=== PATIENT | male | born 1970 | race American Indian/Alaskan Native ===

== ENCOUNTER 2017-03-04 20:58 | Emergency (ER) | payer MEDICAID, OTHER ==
[2017-03-04 20:59] VITALS: BMI 30.5
[2017-03-04 21:09] VITALS: TEMP 98.2
--- NOTE | 2017-03-04 21:15 | ED PDOC ---
Arrival/HPI <Zan Hardy - Last Filed: 03/04/17 21:37> - General Historian: Patient - History of Present Illness Time/Duration: Prior to Arrival Symptom Onset: Sudden Symptom Course: Unchanged Activities at Onset: Light Context: Standing, Street <Sera Hernandez - Last Filed: 03/04/17 23:22> - General Chief Complaint: Trauma Time Seen by Provider: 03/04/17 21:07 - History of Present Illness Narrative History of Present Illness (Text): 03/04/17 21:10 46 year old male smoker, whose past medical history includes chronic back pain, who presents to the ED brought in by EMS complaining of right ankle pain status post fall prior to arrival. Patient states he was outside leaning on the banister of the back porch of his home smoking a cigarette earlier tonight. Patient states the banister was rotted and broke away causing him to fall on to his right ankle. Patient states he landed on his right side but is only experiencing right ankle pain. Patient denies any weakness/numbness/tingling of the extremity, head injury, loss of consciousness, neck pain, headache, or dizziness. Patient states he had difficulty ambulating secondary to pain and notified EMS. Patient denies any other complaints. Patient states he regularly takes pain medication for chronic back pain. (Sera Hernandez) Past Medical History - Provider Review Nursing Documentation Reviewed: Yes - Infectious Disease Hx of Infectious Diseases: None - Tetanus Immunization Tetanus Immunization: Unknown - Past Medical History Past Medical History: No Previous - Musculoskeletal/Rheumatological Hx Fractures: Yes - Psychiatric Hx Emotional Abuse: No Hx Physical Abuse: No Hx Substance Use: No - Past Surgical History Past Surgical History: No Previous - Anesthesia Hx Anesthesia: No - Suicidal Assessment Feels Threatened In Home Enviroment: No <Sera Hernandez - Last Filed: 03/04/17 23:22> Family/Social History - Physician Review Nursing Documentation Reviewed: Yes Family/Social History: Unknown Family HX Smoking Status: Light Smoker < 10 Cigarettes Daily Hx Alcohol Use: Yes Hx Substance Use: No Substance used: PCP Hx Substance Use Treatment: No <Sera Hernandez - Last Filed: 03/04/17 23:22> Allergies/Home Meds <Zan Hardy - Last Filed: 03/04/17 21:37> <Sera Hernandez - Last Filed: 03/04/17 23:22> Allergies/Adverse Reactions: Allergies No Known Allergies Allergy (Verified 02/13/17 11:35) Review of Systems - Physician Review All systems were reviewed & negative as marked: Yes - Review of Systems Constitutional: Normal. absent: Fevers Eyes: Normal ENT: Normal Respiratory: Normal. absent: SOB, Cough Cardiovascular: Normal. absent: Chest Pain, Syncope Gastrointestinal: Normal. absent: Abdominal Pain, Nausea, Vomiting Genitourinary Male: Normal. absent: Dysuria, Frequency, Hematuria, Urinary Output Changes Musculoskeletal: Arthralgias (+right ankle pain) Skin: Normal Neurological: Normal Endocrine: Normal Hemo/Lymphatic: Normal Psychiatric: Normal <Sera Hernandez - Last Filed: 03/04/17 23:22> Physical Exam Vital Signs Reviewed: Yes Temperature: Afebrile Blood Pressure: Hypertensive Pulse: Regular Respiratory Rate: Normal Appearance: Positive for: Well-Appearing, Non-Toxic, Comfortable Pain Distress: None Mental Status: Positive for: Alert and Oriented X 3 - Systems Exam Head: Present: Atraumatic, Normocephalic Pupils: Present: PERRL Extroacular Muscles: Present: EOMI Conjunctiva: Present: Normal Mouth: Present: Moist Mucous Membranes Neck: Present: Normal Range of Motion Respiratory/Chest: Present: Clear to Auscultation, Good Air Exchange. No: Respiratory Distress, Accessory Muscle Use, Tender to Palpation Cardiovascular: Present: Regular Rate and Rhythm, Normal S1, S2. No: Murmurs Abdomen: Present: Normal Bowel Sounds. No: Tenderness, Distention, Peritoneal Signs Upper Extremity: Present: Normal Inspection. No: Cyanosis, Edema Lower Extremity: Present: NORMAL PULSES (Distal pulses intact), Tenderness ( Tenderness to right lateral malleolus, minimal right dorsal foot tenderness, no proximal right fibular tenderness, left lower extremity unremarkable), Swelling (Swelling to right lateral malleolus), Neurovascularly Intact, Capillary Refill < 2 s, Other (no achilles tendon tenderness). No: Edema, CALF TENDERNESS, Cyanosis, Normal ROM (Limited ROM of the right ankle), Erythema, Temperature Abnormalties Neurological: Present: GCS=15, Speech Normal Skin: Present: Warm, Dry, Normal Color. No: Rashes Psychiatric: Present: Alert, Oriented x 3 <Sera Hernandez - Last Filed: 03/04/17 23:22> Vital Signs Temp Pulse Resp BP Pulse Ox 03/04/17 20:59 98.2 F 95 H 16 180/79 H 95 Medical Decision Making <Zan Hardy - Last Filed: 03/04/17 21:37> <Sera Hernandez - Last Filed: 03/04/17 23:22> ED Course and Treatment: 03/04/17 21:10 Impression: 46 year old male complaining of right ankle pain s/p fall tonight. Plan: -- Toradol -- XR Right Foot - no fracture -- XR Right Ankle - no fracture -- Reassess and disposition Progress Notes: Pt given Toradol for pain management. Patient nontoxic well-appearing in no distress with stable vital signs Patient placed in short leg posterior splint. pt refused crutches for ambulation. states he has a cane. I discussed all results in depth with the patient advised to followup with the orthopedist within the next 2 days. Advised return if symptoms worsen persist or new symptoms develop i advised the patient that although the xrays show no fracture; there is still a possibility for ligamentous or tendon injury the patient must see the orthopedist for further evaluation. Patient verbalizes understanding of discharge instructions and need for immediate followup. all aspects of this case were discussed the attending of record. Patient with a history of chronic back pain complaining that he is unable to get his pain medications and he has been traveling back and forth to multiple pain management doctors without success. I've advised the patient that I'll give him a referral to Esteban Faye for further evaluation of his chronic back pain. Impression: Ankle pain Motrin every 6 hours as needed for pain Rest, ice, compression, elevation Use crutches for ambulation Followup with the orthopedist within the next 2 days Followup with primary care physician within the next 2 days Return if symptoms worsen persist or if new symptoms develop (Sera Hernandez) - RAD Interpretation Radiology Orders: 03/04/17 21:14 ANKLE RIGHT 3 VIEWS ROUTINE [RAD] Stat FOOT RIGHT 3 VIEWS ROUTINE [RAD] Stat - Medication Orders Current Medication Orders: Discontinued Medications Ketorolac Tromethamine (Toradol) 60 mg IM STAT STA Stop: 03/04/17 21:15 Last Admin: 03/04/17 21:20 Dose: 60 mg Ketorolac Tromethamine (Toradol) Confirm Administered Dose 60 mg .ROUTE .STK- MED ONE Stop: 03/04/17 21:17 Last Admin: 03/04/17 21:34 Dose: Oxycodone/Acetaminophen (Percocet 5/325 Mg Tab) 1 tab PO STAT STA Stop: 03/04/17 22:29 Procedures - Splinting Location: right ankle Hand-Made Type: fiberglass Splint: posterior short leg splint Pre-Proc Neuro Vasc Exam: normal Post-Proc Neuro Vasc Exam: normal <Sera Hernandez - Last Filed: 03/04/17 23:22> - PA / ULTRASOUND TECHNOL / Resident Statement MD/DO has reviewed & agrees with the documentation as recorded. <Zan Hardy - Last Filed: 03/04/17 21:37> - Scribe Statement The provider has reviewed the documentation as recorded by the Scribe <Sera Hernandez - Last Filed: 03/04/17 23:22> - Scribe Statement Mary Jane Black All medical record entries made by the Scribe were at my direction and personally dictated by me. I have reviewed the chart and agree that the record accurately reflects my personal performance of the history, physical exam, medical decision making, and the department course for this patient. I have also personally directed, reviewed, and agree with the discharge instructions and disposition. (Sera Hernandez) Disposition/Present on Arrival <Zan Hardy - Last Filed: 03/04/17 21:37> - Present on Arrival Any Indicators Present on Arrival: No History of DVT/PE: No History of Uncontrolled Diabetes: No Urinary Catheter: No History of Decub. Ulcer: No History Surgical Site Infection Following: None - Disposition Have Diagnosis and Disposition been Completed?: Yes Disposition Time: 22:28 Patient Plan: Discharge <Sera Hernandez - Last Filed: 03/04/17 23:22> - Disposition Diagnosis: Ankle pain Disposition: HOME/ ROUTINE Patient Problems: Current Active Problems Problem Status Onset Ankle pain Acute Condition: GOOD Discharge Instructions (ExitCare): Ankle Sprain (ED) Additional Instructions: Motrin every 6 hours as needed for pain Rest, ice, compression, elevation Use crutches for ambulation Followup with the orthopedist within the next 2 days Followup with primary care physician within the next 2 days Return if symptoms worsen persist or if new symptoms develop Prescriptions: Ibuprofen [Motrin] 600 mg PO Q6H PRN #20 tab PRN Reason: pain/fever reduction Referrals: [facility] [Outside] - Follow up with primary Pedro Fonseca MD [Primary Care Provider] - Follow up with primary Shahid Bolden MD [Staff Provider] - Follow up with primary Esteban Faye MD [Staff Provider] - Follow up with primary Forms: [employer] ([place]), WORK NOTE
[2017-03-04] MEDS ORDERED: Oxycodone/Acetaminophen 5/325 mg Tab PO STA (22:28)
[2017-03-04 23:06] VITALS: BP 142/80; PULSE 85; RESP 18; O2SAT 96
--- NOTE | 2017-03-05 10:09 | RAD ---
PROCEDURE: Right Foot Radiographs. HISTORY: ankle injury s/p fall COMPARISON: None. FINDINGS: BONES: There is a comminuted fracture of the mid calcaneus JOINTS: Normal. SOFT TISSUES: Normal. OTHER FINDINGS: None. IMPRESSION: Comminuted fracture of the mid calcaneus
--- NOTE | 2017-03-05 10:11 | RAD ---
PROCEDURE: Right Ankle Radiographs. HISTORY: ankle injury s/p fall COMPARISON: None FINDINGS: BONES: Comminuted displaced fracture of the mid calcaneus JOINTS: Normal. No osteoarthritis. Ankle mortise maintained. Talar dome intact SOFT TISSUES: Normal. OTHER FINDINGS: None. IMPRESSION: Comminuted displaced fracture of the mid calcaneus
== END 2017-03-04 23:25 | disposition home or self-care (01) ==
LOC: ED 20:58
DX: S92.001A Unspecified fracture of right calcaneus, initial encounter for closed fracture (principal); W18.39XA Other fall on same level, initial encounter; Y93.89 Activity, other specified; Y92.008 Other place in unspecified non-institutional (private) residence as the place of occurrence of the external cause; M25.571 Pain in right ankle and joints of right foot
CPT/HCPCS: 73610; 73630; 96372; 99285; J1885

== ENCOUNTER 2017-03-06 03:40 | Emergency (ER) | payer MEDICAID ==
[2017-03-06 03:40] VITALS: BMI 30.5
[2017-03-06 04:20] VITALS: RESP 16; TEMP 99.1; O2SAT 99
[2017-03-06] MEDS ORDERED: Oxycodone/Acetaminophen 5/325 mg Tab PO STA (05:29)
--- NOTE | 2017-03-06 05:37 | ED PDOC ---
Arrival/HPI - General Chief Complaint: Lower Extremity Problem/Injury Time Seen by Provider: 03/06/17 03:41 Historian: Patient - History of Present Illness Narrative History of Present Illness (Text): 03/06/17 05:31 Zan Brothers is a 46 year old male who presents to the emergency department for evaluation of right heel fracture. He was evaluated at [facility] on 03/04/17 for similar complaints and was discharged home with crutches and splint. Official read of X-rays done at that time showed calcaneous fracture. ISSAC Hernandez called the patient over the phone to inform of the findings and advised the patient to present to [facility] for further evaluation. Per ISSAC note, patient decided to go to [facility] (closer for him) following his initial visit here.States he had CT scan done at [facility] was discharged advised to remain with splint/ crutches and follow up out patient clinic.This according to the pt. Denies fever, chills, headache, dizziness, nausea, vomiting, diarrhea, weakness/numbness of extremity, or any other complaints at this time. Time/Duration: Other (2 days ) Severity Level: Mild Activities at Onset: Light Past Medical History - Provider Review Nursing Documentation Reviewed: Yes - Infectious Disease Hx of Infectious Diseases: None - Tetanus Immunization Tetanus Immunization: Unknown - Past Medical History Past Medical History: No Previous - Cardiac Hx Cardiac Disorders: No - Pulmonary Hx Respiratory Disorders: No - Neurological Hx Neurological Disorder: No - HEENT Hx HEENT Disorder: No - Renal Hx Renal Disorder: No - Endocrine/Metabolic Hx Endocrine Disorders: No - Hematological/Oncological Hx Blood Disorders: No - Integumentary Hx Dermatological Disorder: No - Musculoskeletal/Rheumatological Hx Back Pain: Yes Hx Fractures: Yes (left wrist) - Gastrointestinal Hx Gastrointestinal Disorders: No - Genitourinary/Gynecological Hx Genitourinary Disorders: No - Psychiatric Hx Psychophysiologic Disorder: No Hx Emotional Abuse: No Hx Physical Abuse: No Hx Substance Use: No - Past Surgical History Past Surgical History: No Previous - Surgical History Hx Orthopedic Surgery: Yes (left wrist 10/11/16) - Anesthesia Hx Anesthesia: No - Suicidal Assessment Feels Threatened In Home Enviroment: No Family/Social History - Physician Review Nursing Documentation Reviewed: Yes Family/Social History: No Known Family HX Smoking Status: Light Smoker < 10 Cigarettes Daily Hx Alcohol Use: Yes Hx Substance Use: No Substance used: PCP Hx Substance Use Treatment: No Allergies/Home Meds Allergies/Adverse Reactions: Allergies No Known Allergies Allergy (Verified 03/06/17 04:08) Review of Systems - Physician Review All systems were reviewed & negative as marked: Yes - Review of Systems Constitutional: Normal. absent: Fatigue, Fevers Respiratory: Normal. absent: SOB, Cough, Sputum Cardiovascular: Normal. absent: Chest Pain, Palpitations Musculoskeletal: Normal Neurological: Normal. absent: Headache, Dizziness Physical Exam Vital Signs Reviewed: Yes Vital Signs Temp Pulse Resp BP Pulse Ox 03/06/17 06:11 80 16 135/75 99 03/06/17 04:19 99.1 F 86 16 149/94 H 99 Temperature: Afebrile Blood Pressure: Normal Pulse: Regular Respiratory Rate: Normal Appearance: Positive for: Well-Appearing, Non-Toxic, Comfortable Pain Distress: None Mental Status: Positive for: Alert and Oriented X 3 - Systems Exam Head: Present: Atraumatic, Normocephalic Pupils: Present: PERRL Respiratory/Chest: Present: Clear to Auscultation, Good Air Exchange. No: Respiratory Distress, Accessory Muscle Use Cardiovascular: Present: Regular Rate and Rhythm, Normal S1, S2. No: Murmurs Lower Extremity: Present: Neurovascularly Intact, Capillary Refill < 2 s, Other ( right lower leg/foot splint intact). No: Edema Neurological: Present: GCS=15, CN II-XII Intact, Speech Normal, Motor Func Grossly Intact, Normal Sensory Function Skin: Present: Warm, Dry, Normal Color. No: Rashes Psychiatric: Present: Alert, Oriented x 3, Normal Insight, Normal Concentration Medical Decision Making ED Course and Treatment: 03/06/17 05:38 Impression: A 46 year old male who presents to the emergency department complaining of right heel discomfort from a fx. and follow up care instructions. Differential Diagnosis included but are not limited to: fracture. Plan: -- Percocet. -- Reassess and disposition Progress Notes: 03/06/17 06:00 Case was d/w engravings polisher .Requested that patient follow up tomorrow at [facility] for further evaluation/FOLLOW UP CARE - Medication Orders Current Medication Orders: Discontinued Medications Oxycodone/Acetaminophen (Percocet 5/325 Mg Tab) 1 tab PO STAT STA Stop: 03/06/17 05:30 Last Admin: 03/06/17 05:41 Dose: 1 tab - Scribe Statement The provider has reviewed the documentation as recorded by the Paco Erwin Provider Attestation: Provider Scribe Attestation: All medical record entries made by the Scribe were at my direction and personally dictated by me. I have reviewed the chart and agree that the record accurately reflects my personal performance of the history, physical exam, medical decision making, and the department course for this patient. I have also personally directed, reviewed, and agree with the discharge instructions and disposition. Disposition/Present on Arrival - Present on Arrival Any Indicators Present on Arrival: No History of DVT/PE: No History of Uncontrolled Diabetes: No Urinary Catheter: No History of Decub. Ulcer: No History Surgical Site Infection Following: None - Disposition Have Diagnosis and Disposition been Completed?: Yes Diagnosis: Heel fracture Disposition: HOME/ ROUTINE Disposition Time: 06:27 Patient Plan: Discharge Condition: STABLE Discharge Instructions (ExitCare): Calcaneal Fracture (ED) Additional Instructions: Maintain foot splint/use crutches/no weight bearing on the foot/*FOLLOW UP AT [facility] tomorrow afternoon* [address] [place] [address] Prescriptions: oxyCODONE/Acetaminophen [Percocet 5/325 mg Tab] 1 ea PO Q6 PRN #8 tab PRN Reason: Pain, Moderate (4-7) Referrals: Thee Fonseca MD [Primary Care Provider] - Follow up with primary Forms: [employer] ([place])
[2017-03-06 06:13] VITALS: BP 135/75; PULSE 80
== END 2017-03-06 06:51 | disposition home or self-care (01) ==
LOC: ED 03:40
DX: S92.001D Unspecified fracture of right calcaneus, subsequent encounter for fracture with routine healing (principal); W18.39XD Other fall on same level, subsequent encounter

== ENCOUNTER 2017-03-08 22:07 | Emergency (ER) | payer MEDICAID ==
[2017-03-08 22:09] VITALS: BMI 28.5
[2017-03-08] MEDS ORDERED: Oxycodone/Acetaminophen 5/325 mg Tab PO STA (22:18)
[2017-03-08 22:20] VITALS: TEMP 98.3
--- NOTE | 2017-03-08 22:24 | ED PDOC ---
Arrival/HPI - General Chief Complaint: Trauma Time Seen by Provider: 03/08/17 22:14 - History of Present Illness Narrative History of Present Illness (Text): 03/08/17 22:21 46-year-old male presents emergency Department with right ankle pain/injury. Patient states she was in the shower, slipped, describes a mechanical fall with right ankle injury. Patient states that he recently broke his ankle. States that he made n follow-up appointment with an orthopedist in [place] on March 23. He denies any other trauma, pain, or injury. States that he had no loss of consciousness, and denies any head trauma as well. Past Medical History - Provider Review Nursing Documentation Reviewed: Yes - Infectious Disease Hx of Infectious Diseases: None - Tetanus Immunization Tetanus Immunization: Unknown - Past Medical History Past Medical History: No Previous - Cardiac Hx Cardiac Disorders: No - Pulmonary Hx Respiratory Disorders: No - Neurological Hx Neurological Disorder: No - HEENT Hx HEENT Disorder: No - Renal Hx Renal Disorder: No - Endocrine/Metabolic Hx Endocrine Disorders: No - Hematological/Oncological Hx Blood Disorders: No - Integumentary Hx Dermatological Disorder: No - Musculoskeletal/Rheumatological Hx Back Pain: Yes Hx Fractures: Yes (left wrist) - Gastrointestinal Hx Gastrointestinal Disorders: No - Genitourinary/Gynecological Hx Genitourinary Disorders: No - Psychiatric Hx Psychophysiologic Disorder: No Hx Emotional Abuse: No Hx Physical Abuse: No Hx Substance Use: No - Past Surgical History Past Surgical History: No Previous - Surgical History Hx Orthopedic Surgery: Yes (left wrist 10/11/16) - Anesthesia Hx Anesthesia: No - Suicidal Assessment Feels Threatened In Home Enviroment: No Family/Social History Family/Social History: Unknown Family HX Smoking Status: Light Smoker < 10 Cigarettes Daily Hx Alcohol Use: Yes Hx Substance Use: No Substance used: PCP Hx Substance Use Treatment: No Allergies/Home Meds Allergies/Adverse Reactions: Allergies No Known Allergies Allergy (Verified 03/06/17 04:08) Physical Exam - Physical Exam Narrative Physical Exam (Text): 03/08/17 22:22 - Review of Systems Constitutional: Normal. absent: Fatigue, Weight Change, Fevers Eyes: Normal ENT: denies sore throat, denies tristhmus Respiratory: Normal. absent: SOB, Cough, Sputum Cardiovascular: absent: Chest Pain, Palpitations, Syncope Gastrointestinal: Normal. absent: Abdominal Pain, Diarrhea, Nausea, Vomiting Genitourinary: Normal. absent: Dysuria, Frequency, Hematuria Musculoskeletal: Ankle injury absent: Back Pain, Neck Pain Skin: no rashes, no erythema Neurological: absent: Focal Weakness Endocrine: Normal Hemo/Lymphatic: Normal Psychiatric: No suicidal or homicidal ideations Physical exam Patient appears age appropriate in no distress, speaking full sentences without difficulty Head atraumatic. No nasal bone deformity or tenderness, no facial or jaw pain/ swelling. No neck midline tenderness, thoracic and lumbar spine with no midline tenderness. Pt moving b/l upper and lower extremities without difficulty, 5/5 strength, with full active and passive ROM (except right ankle). Distal neurovasc fully intact. Abd soft/nt/nd, no hematomas, no peritoneal signs. Neg. pelvic rock. - Systems Exam Head: Present: Atraumatic, Normocephalic Pupils: Present: PERRL Extroacular Muscles: Present: EOMI Conjunctiva: Present: Normal Mouth: Present: Moist Mucous Membranes Neck: Present: Normal Range of Motion. No: MIDLINE TENDERNESS, Paraspinal Tenderness Respiratory/Chest: Present: Clear to Auscultation, Good Air Exchange. No: Respiratory Distress, Accessory Muscle Use, Tachypneic Cardiovascular: Present: Regular Rate and Rhythm, Normal S1, S2, Peripheal Pulses Present. No: Murmurs Abdomen: Present: Normal Bowel Sounds. No: Tenderness, Distention, Peritoneal Signs, Rebound, Guarding Back: Present: Normal Inspection. No: Midline Tenderness, Paraspinal Tenderness Upper Extremity: Present: Normal Inspection. No: Cyanosis, Edema Lower Extremity: Present: Right knee with full active and passive range of motion. No proximal fibular head tenderness of palpation. Right ankle swelling with decreased range of motion due to pain. Distal neurovascular fully intact. No tenderness to palpation over the base of the fifth metatarsal. Neurological: Present: GCS=15, Speech Normal, cranial nerves II through XII fully intact with no cerebellar abnormality, neurosensory fully intact. No focal neurological deficits. Skin: Present: Warm, Dry, Normal Color. No: Rashes Lymphatic: Present: OX3, NI, NC Psychiatric: Present: Alert, Oriented x 3, Normal Insight, Normal Concentration Vital Signs Reviewed: Yes Vital Signs Temp Pulse Resp BP Pulse Ox 03/08/17 22:12 98.3 F 92 H 16 146/86 98 Temperature: Afebrile Blood Pressure: Normal Pulse: Regular Respiratory Rate: Normal Appearance: Positive for: Well-Appearing Pain Distress: None Mental Status: Positive for: Alert and Oriented X 3 Medical Decision Making ED Course and Treatment: 03/08/17 22:20 Previous records reviewed, patient was seen in the emergency department on and diagnosed with mid calcaneus fracture. Comminuted, displaced. 03/08/17 22:24 46-year-old male with a history of recent calcaneal fracture last month presents with a mechanical fall reinjuring his right ankle. Pt has no back pain , no lumbo/sacral tenderness to palpation. Pain medication and x-rays ordered 03/09/17 00:31 no new fractures or dislocations on pt's foot/ankle xray placed in post short leg splint pt states he understands to f/u with an orthopedist outpatient pt states he has crutches Pt states he understands to return to the ER right away for new or worsening symptoms or for inability to f/u with PMD or specialist as instructed. Patient states that he fully agrees with and understands discharge instructions. States that he agrees with the plan and disposition. Verbalized and repeated discharge instructions and plan. I have given the patient opportunity to ask any additional questions. - RAD Interpretation Radiology Orders: 03/08/17 22:18 ANKLE RIGHT 3 VIEWS ROUTINE [RAD] Stat FOOT RIGHT 3 VIEWS ROUTINE [RAD] Stat - Medication Orders Current Medication Orders: Discontinued Medications Oxycodone/Acetaminophen (Percocet 5/325 Mg Tab) 1 tab PO STAT STA Stop: 03/08/17 22:19 Last Admin: 03/08/17 22:31 Dose: 1 tab Disposition/Present on Arrival - Present on Arrival Any Indicators Present on Arrival: No History of DVT/PE: No History of Uncontrolled Diabetes: No Urinary Catheter: No History of Decub. Ulcer: No History Surgical Site Infection Following: None - Disposition Have Diagnosis and Disposition been Completed?: Yes Diagnosis: Calcaneal fracture Disposition: HOME/ ROUTINE Disposition Time: 00:33 Patient Plan: Discharge Condition: GOOD Discharge Instructions (ExitCare): Calcaneal Fracture (ED) Additional Instructions: PLEASE RETURN TO THE EMERGENCY DEPARTMENT FOR NEW OR WORSENING SYMPTOMS. RETURN RIGHT AWAY IF YOU CANNOT FOLLOW UP WITH YOUR PRIMARY CARE DOCTOR, CLINIC, OR SPECIALIST IN 1-2 DAYS. Prescriptions: Acetaminophen with Codeine [Tylenol with Codeine #3 Tablet] 1 each PO Q6 PRN # 12 tablet PRN Reason: Pain, Moderate (4-7) Referrals: Cheryl Vanessa MD [Staff Provider] - Follow up with primary Oscar Koroma DO [Staff Provider] - Follow up with primary Forms: [employer] ([place])
[2017-03-09 01:01] VITALS: BP 138/74; PULSE 82; RESP 18; O2SAT 99
--- NOTE | 2017-03-09 08:11 | RAD ---
PROCEDURE: Right Ankle Radiographs. HISTORY: fall COMPARISON: None FINDINGS: BONES: There is an oblique lucency in the mid body of the calcaneus. There is an acute mildly displaced fracture in the neck of the talus. JOINTS: Normal. Ankle mortise maintained. Talar dome intact SOFT TISSUES: There is moderate periarticular soft tissue swelling. OTHER FINDINGS: None. IMPRESSION: Acute nondisplaced fracture in the midbody of the calcaneus and acute mildly displaced fracture in the neck of the talus. Important findings were discussed with Dr. Shanks in the ER on 03/09/2017 at 8:05 a.m.
--- NOTE | 2017-03-09 08:21 | RAD ---
PROCEDURE: Right Foot Radiographs. HISTORY: Fall COMPARISON: None. FINDINGS: BONES: Bone alignment and mineralization are normal. There is redemonstration of a comminuted fracture in the calcaneus. Also noted is a mildly distracted fracture in the neck of the talus. JOINTS: Normal. SOFT TISSUES: Normal. OTHER FINDINGS: None. IMPRESSION: 1. Redemonstration of acute comminuted fracture in the mid body of the calcaneus. 2. New mildly distracted fracture in the neck of the talus. Important findings were discussed with Dr. Garcia on 03/09/2017 at 8:05 a.m.
== END 2017-03-09 01:10 | disposition home or self-care (01) ==
LOC: ED 22:07
DX: S92.011A Displaced fracture of body of right calcaneus, initial encounter for closed fracture (principal); W18.2XXA Fall in (into) shower or empty bathtub, initial encounter; Y93.E1 Activity, personal bathing and showering; F17.210 Nicotine dependence, cigarettes, uncomplicated